=== PATIENT | female | born 1935 | race Caucasian/White ===

== ENCOUNTER 2022-10-04 04:03 | Observation (INO) | payer OTHER ==
[2022-10-04 04:26] VITALS: BMI 24.6
[2022-10-04 09:55] LABS: BASO % 0.2 % (0-2.0); EOS % 0.2 % (0-4.5); HEMATOCRIT 42.6 % (32.4-45.2); HEMOGLOBIN 13.9 GM/dL (10.7-15.3); LYMPH % 20.5 % (8-40); MCH 29.6 pg (25.7-33.7); MCHC 32.7 g/dl (32.0-36.0); MEAN CELL VOLUME 90.6 fl (80-96); MEAN PLT VOLUME 7.6 fl (7.5-11.1); MONO % 9.6 % (3.8-10.2); NEUT % 69.5 % (42.8-82.8); PLATELET COUNT 266 10^3/uL (134-434); RDW 13.8 % (11.6-15.6); WHITE BLOOD COUNT 5.6 K/mm3 (4.0-10.0)
[2022-10-04 10:16] LABS: CALCIUM 9.9 mg/dL (8.5-10.1)
[2022-10-04 10:17] LABS: ALBUMIN 3.7 g/dl (3.4-5.0); BLOOD UREA NITROGEN 26.8 mg/dL (7-18); MAGNESIUM 2.5 mg/dL (1.8-2.4)
[2022-10-04 10:20] LABS: CREATININE 0.8 mg/dL (0.55-1.3)
[2022-10-04 10:21] LABS: BILIRUBIN,TOTAL 0.4 mg/dL (0.2-1)
[2022-10-04 10:22] LABS: TOT PROT 7.2 g/dl (6.4-8.2)
[2022-10-04 10:25] LABS: N-TERMINAL BNP 89.7 pg/ml (5-450)
[2022-10-04 11:53] LABS: EPI CELLS 33 /uL (0-25.1); HYALINE CASTS 15 /uL (0-3.1); PH,URINE 5.5 (5.0-8.0); URINE APPEARANCE CLOUDY; URINE BACTERIA 49 /uL (0-1359); URINE BILIRUBIN NEGATIVE (NEGATIVE); URINE COLOR DK YELLOW; URINE GLUCOSE (UA) NEGATIVE (NEGATIVE); URINE KETONE 3+ (NEGATIVE); URINE LEUK ESTERASE 1+ (NEGATIVE); URINE NITRITE NEGATIVE (NEGATIVE); URINE PROTEIN 1+ (NEGATIVE); URINE WBC 137 /uL (0-25.8)
[2022-10-04 12:14] LABS: URINE CRYSTALS CA OXALATE /hpf
[2022-10-04] MEDS ORDERED: LACTATED RINGERS SOLUTION 1,000 ML IV SCH (15:15)
[2022-10-04] MEDS ORDERED: CEFTRIAXONE 1 GM/50 ML BAG ONE (17:10)
[2022-10-04] MEDS: CEFTRIAXONE 1 GM in DEXTROSE 5%-WATER - 50 ML IVPB SCH (17:20)
[2022-10-04] MEDS ORDERED: ATORVASTATIN CA 20 MG TABLET (FP) ONE (22:13)
[2022-10-04] MEDS ORDERED: DONEPEZIL HCL 5 MG TABLET (FP) ONE (22:14)
[2022-10-04] MEDS ORDERED: MIRTAZAPINE 15 MG TABLET (FP) ONE (22:14)
[2022-10-04] MEDS: ATORVASTATIN CA 20 MG TABLET (FP) PO SCH (22:24)
[2022-10-04] MEDS: DONEPEZIL HCL 10 MG TABLET (FP) PO SCH (22:24)
[2022-10-04] MEDS: MIRTAZAPINE 15 MG TABLET (FP) PO SCH (22:24)
[2022-10-05] MEDS ORDERED: HALOPERIDOL LACTATE 5 MG/ML IM ONE (01:48)
[2022-10-05 10:17] LABS: HEMOGLOBIN 14.2 GM/dL (10.7-15.3); MCH 29.3 pg (25.7-33.7); MCHC 32.3 g/dl (32.0-36.0); MEAN CELL VOLUME 90.6 fl (80-96); MEAN PLT VOLUME 7.2 fl (7.5-11.1); PLATELET COUNT 234 10^3/uL (134-434); RBC 4.86 M/mm3 (3.60-5.2); RDW 13.4 % (11.6-15.6); WHITE BLOOD COUNT 7.7 K/mm3 (4.0-10.0)
[2022-10-05] MEDS ORDERED: FUROSEMIDE 20 MG TABLET (FP) ONE (10:49)
[2022-10-05] MEDS ORDERED: metoPROLOL SUCCINATE 25 MG TAB.SR.24H (FP) PO ONE (10:49)
[2022-10-05] MEDS ORDERED: CEFTRIAXONE 1 GM/50 ML BAG ONE (10:49)
[2022-10-05] MEDS: FUROSEMIDE 20 MG TABLET (FP) PO SCH (11:00)
[2022-10-05] MEDS: CEFTRIAXONE 1 GM in DEXTROSE 5%-WATER - 50 ML IVPB SCH (11:00)
[2022-10-05] MEDS: metoPROLOL SUCCINATE 25 MG TAB.SR.24H (FP) PO SCH (11:00)
[2022-10-05 11:06] LABS: BLOOD UREA NITROGEN 23.5 mg/dL (7-18); CALCIUM 9.4 mg/dL (8.5-10.1); MAGNESIUM 2.3 mg/dL (1.8-2.4)
[2022-10-05 11:09] LABS: CREATININE 0.7 mg/dL (0.55-1.3); PHOSPHOROUS 2.5 mg/dL (2.5-4.9)
[2022-10-05] MEDS: DONEPEZIL HCL 10 MG TABLET (FP) PO SCH (22:53)
[2022-10-05] MEDS: ATORVASTATIN CA 20 MG TABLET (FP) PO SCH (22:53)
[2022-10-05] MEDS: MIRTAZAPINE 15 MG TABLET (FP) PO SCH (22:53)
[2022-10-06] MEDS: FUROSEMIDE 20 MG TABLET (FP) PO SCH (10:54)
[2022-10-06] MEDS: metoPROLOL SUCCINATE 25 MG TAB.SR.24H (FP) PO SCH (10:54)
[2022-10-06 20:04] VITALS: BP 129/81; PULSE 72; RESP 20; TEMP 97.7
== END 2022-10-06 21:48 ==
LOC: JER 04:03 → JERBED 13:01 → INTOOBSV 13:01 → UNDOADMOB 13:01 → JERBED 15:05 → J5S 10-05 19:58
PROVIDERS: ADMIT Internal Medicine
PROC: 3E03329 Introduction of Other Anti-infective into Peripheral Vein, Percutaneous Approach (ICD-10-PCS; principal; 2022-10-04)
PROC: 3E023GC Introduction of Other Therapeutic Substance into Muscle, Percutaneous Approach (ICD-10-PCS; 2022-10-04)
PROC: 3E0337Z Introduction of Electrolytic and Water Balance Substance into Peripheral Vein, Percutaneous Approach (ICD-10-PCS; 2022-10-04)
DX: S09.90XA Unspecified injury of head, initial encounter (principal); F03.90 Unspecified dementia, unspecified severity, without behavioral disturbance, psychotic disturbance, mood disturbance, and anxiety; U07.1 COVID-19; R09.02 Hypoxemia; Z86.73 Personal history of transient ischemic attack (TIA), and cerebral infarction without residual deficits; E78.5 Hyperlipidemia, unspecified; G20 Parkinson's disease; F02.80 Dementia in other diseases classified elsewhere, unspecified severity, without behavioral disturbance, psychotic disturbance, mood disturbance, and anxiety; I11.0 Hypertensive heart disease with heart failure; I50.9 Heart failure, unspecified; F41.8 Other specified anxiety disorders; M81.0 Age-related osteoporosis without current pathological fracture; Y82.8 Other medical devices associated with adverse incidents; R05.9 Cough, unspecified; W18.39XA Other fall on same level, initial encounter; Y93.89 Activity, other specified; Y92.89 Other specified places as the place of occurrence of the external cause
CPT/HCPCS: 0241U-QW; 36415; 70450-TC; 71045-TC-FY; 72125-TC; 72170-TC-FY; 80048; 80053; 81003; 82550; 83735; 83880; 84100; 84484; 85025; 85027; 87086; 93005; 93010; 96361; 96365; 96372; 97116-GP; 99285-25; G0378

== ENCOUNTER 2024-06-01 16:42 | Emergency (ER) | payer OTHER ==
[2024-06-01 17:04] VITALS: RESP 16; BMI 24.5
[2024-06-01 20:38] LABS: POTASSIUM 5.1 mmol/L (3.5-5.1)
[2024-06-01 20:41] LABS: ALBUMIN 3.2 g/dl (3.4-5.0); BLOOD UREA NITROGEN 18.1 mg/dL (7-18)
[2024-06-01 20:44] LABS: CREATININE 0.7 mg/dL (0.55-1.3)
[2024-06-01 20:46] LABS: BILIRUBIN,TOTAL 0.4 mg/dL (0.2-1); TOT PROT 6.6 g/dl (6.4-8.2)
[2024-06-01] MEDS: LACTATED RINGERS SOLUTION 1000 ML INFUS.BAG IV ONE (21:08)
[2024-06-02 03:09] VITALS: BP 131/54; PULSE 60; TEMP 98.4
== END 2024-06-02 03:15 ==
LOC: JER 16:42
DX: R22.0 Localized swelling, mass and lump, head (principal); W19.XXXA Unspecified fall, initial encounter
CPT/HCPCS: 36415; 70450-TC; 71046-TC-FY; 80053; 84484; 99285-25